=== PATIENT | male | born 1955 | race Two or more races ===

== ENCOUNTER → 2020-01-16 06:00 | Outpatient (CLI) | payer OTHER ==
[~2020-01-16] VITALS: Ht 170.2 cm; Wt 115.7 kg
[~2020-01-16 06:00] MED LIST: ATACAND HCT 321 EACH PO; BAYER THERAPY325 MG PO; METFORMIN HCL500 M3 PO; TENORMIN50 M1 PO; ULTRAM50 MG PO; ZYLOPRIM300 MG PO
== END | disposition home or self-care (01) ==
LOC: LAB 06:00 → RECOVERY 01-21 08:30 → EDSTATUS 01-21 08:30
PROVIDERS: ATTEND Orthopaedic Surgery
DX: Z03.818 Encounter for observation for suspected exposure to other biological agents ruled out (principal); Z20.828 Contact with and (suspected) exposure to other viral communicable diseases

== ENCOUNTER 2020-07-18 10:32 | Outpatient (CLI) | payer OTHER | END 2020-07-18 18:00 | disposition home or self-care (01) | LOC: LAB 10:32 | PROVIDERS: ATTEND Orthopaedic Surgery | DX: I10 Essential (primary) hypertension (principal); Z76.89 Persons encountering health services in other specified circumstances; B95.62 Methicillin resistant Staphylococcus aureus infection as the cause of diseases classified elsewhere; N39.0 Urinary tract infection, site not specified; D68.8 Other specified coagulation defects; E88.89 Other specified metabolic disorders; D64.89 Other specified anemias ==

== ENCOUNTER 2020-08-04 09:47 | Inpatient (IN) | payer OTHER ==
[~2020-08-04] VITALS: Ht 170.2 cm; Wt 120.5 kg
== END 2020-08-07 15:27 | disposition home or self-care (01) | DRG 470 ==
LOC: SURH 09:47 → O/R 10:35 → SURH 10:35
PROVIDERS: ADMIT Orthopaedic Surgery; ATTEND Orthopaedic Surgery
PROC: 0SRB0JZ Replacement of Left Hip Joint with Synthetic Substitute, Open Approach (ICD-10-PCS; principal; 2020-08-04 12:30)
DX: M16.12 Unilateral primary osteoarthritis, left hip (principal); I10 Essential (primary) hypertension; Z20.822 Contact with and (suspected) exposure to COVID-19

== ENCOUNTER 2021-08-19 09:44 | Outpatient (CLI) | payer OTHER ==
[~2021-08-19] VITALS: Ht 170.2 cm; Wt 121.1 kg
== END 2021-08-19 09:46 | disposition home or self-care (01) ==
LOC: LAB 09:44
PROVIDERS: ATTEND Orthopaedic Surgery
DX: M16.11 Unilateral primary osteoarthritis, right hip (principal); Z76.89 Persons encountering health services in other specified circumstances; I10 Essential (primary) hypertension; I49.9 Cardiac arrhythmia, unspecified; D64.9 Anemia, unspecified; E88.9 Metabolic disorder, unspecified; D68.8 Other specified coagulation defects; N39.0 Urinary tract infection, site not specified; A49.02 Methicillin resistant Staphylococcus aureus infection, unspecified site; E11.9 Type 2 diabetes mellitus without complications

== ENCOUNTER 2021-08-28 09:00 | Inpatient (IN) | payer OTHER ==
[2021-08-31] MEDS ORDERED: TYLENOL ARTHRI650 MG PO (08:15)
[2021-08-31] MEDS ORDERED: CELEBREX50 MG PO (08:16)
[2021-09-01] MEDS ORDERED: XARELTO10 M1 (13:02)
[2021-09-01] MEDS ORDERED: GABAPENTIN100 M2 (13:02)
[2021-09-01] MEDS ORDERED: CELECOXIB200 MG (13:02)
[2021-09-01] MEDS ORDERED: DICLOFENAC SOD100 GM (13:04)
[2021-09-01] MEDS ORDERED: VERAPAMIL HCL120 M3 (13:05)
[2021-09-01] MEDS ORDERED: OMEGA-3 ACID ETH1 GM (13:05)
[2021-09-01] MEDS ORDERED: ELIQUIS5 MG (13:05)
[2021-09-01] MEDS ORDERED: DICLOFENAC POTA50 MG (13:05)
[2021-09-01] MEDS ORDERED: MONTELUKAST SOD10 MG (13:06)
[2021-09-01] MEDS ORDERED: FLONASE16 GM (13:06)
== END 2021-09-07 16:23 | DRG 470 ==
LOC: SURH 09:00 → SURG 09-01 10:05 → O/R 09-01 10:05 → SURG 09-02 01:29 → SURH 09-02 10:40
PROVIDERS: ADMIT Orthopaedic Surgery; ATTEND Orthopaedic Surgery
PROC: 0QS404Z Reposition Right Acetabulum with Internal Fixation Device, Open Approach (ICD-10-PCS; 2021-09-01)
PROC: 0KXN0ZZ Transfer Right Hip Muscle, Open Approach (ICD-10-PCS; 2021-09-01)
PROC: 0SR90JZ Replacement of Right Hip Joint with Synthetic Substitute, Open Approach (ICD-10-PCS; principal; 2021-09-01 09:00)
PROC: 0QS404Z Reposition Right Acetabulum with Internal Fixation Device, Open Approach (ICD-10-PCS; 2021-09-02)
PROC: 4A12X4Z Monitoring of Cardiac Electrical Activity, External Approach (ICD-10-PCS; 2021-09-02)
PROC: 30233N1 Transfusion of Nonautologous Red Blood Cells into Peripheral Vein, Percutaneous Approach (ICD-10-PCS; 2021-09-03)
DX: M16.11 Unilateral primary osteoarthritis, right hip (principal); D62 Acute posthemorrhagic anemia; T84.020A Dislocation of internal right hip prosthesis, initial encounter; I24.8 Other forms of acute ischemic heart disease; Q65.89 Other specified congenital deformities of hip; M25.751 Osteophyte, right hip; M89.351 Hypertrophy of bone, right femur; I11.9 Hypertensive heart disease without heart failure; I48.91 Unspecified atrial fibrillation; Z79.52 Long term (current) use of systemic steroids

== ENCOUNTER 2021-09-18 08:36 | Outpatient (CLI) | payer OTHER ==
[~2021-09-18 08:36] MED LIST changes: +CELEBREX50 MG PO; +CELECOXIB200 MG; +DICLOFENAC POTA50 MG; +DICLOFENAC SOD100 GM; +ELIQUIS5 MG; +FLONASE16 GM; +GABAPENTIN100 M2; +MONTELUKAST SOD10 MG; +OMEGA-3 ACID ETH1 GM; +TYLENOL ARTHRI650 MG PO; +VERAPAMIL HCL120 M3; +XARELTO10 M1
== END 2021-09-18 08:52 | disposition home or self-care (01) ==
LOC: LAB 08:36
PROVIDERS: ATTEND Orthopaedic Surgery
DX: D64.9 Anemia, unspecified (principal); M06.4 Inflammatory polyarthropathy

== ENCOUNTER 2021-09-22 09:29 | Outpatient (CLI) | payer OTHER | END 2021-09-22 13:52 | disposition home or self-care (01) | LOC: LAB 09:29 | PROVIDERS: ATTEND Orthopaedic Surgery | DX: M06.4 Inflammatory polyarthropathy (principal) ==

== ENCOUNTER 2021-09-30 08:46 | Outpatient (CLI) | payer OTHER ==
[2021-09-30] MEDS ORDERED: TENORMIN50 M1 (12:50)
[2021-09-30] MEDS ORDERED: NEXIUM5 MG (12:56)
== END 2021-09-30 08:52 | disposition home or self-care (01) ==
LOC: LAB 08:46
PROVIDERS: ATTEND Orthopaedic Surgery
DX: D64.9 Anemia, unspecified (principal); M06.4 Inflammatory polyarthropathy

== ENCOUNTER 2021-09-30 11:58 | Inpatient (IN) | payer OTHER ==
[~2021-09-30] VITALS: Ht 170.2 cm; Wt 121.1 kg
[2021-09-30] MEDS ORDERED: TENORMIN50 M1 (12:50)
[2021-09-30] MEDS ORDERED: NEXIUM5 MG (12:56)
--- NOTE | 2021-09-30 12:57 | NUR ---
SE RECIBE PTE ALERTA Y ORIENTADO. PTE REFIERE DR. LÁZARO VALENCIA LE INDICO ADMISION PARA OPERACION POR MAG DE EMERGENCIA. SE UBICA PTE EN ANGUS 7.
--- NOTE | 2021-09-30 15:18 | NUR ---
SE EDUCA A PTE SOBRE [place] MEDICO NATIVIDAD REFIERE ENTENDER. SE BRAYDON MUESTRAS DE LABORATORIO UTILIZANDO MEDIDAS ASEPTICAS. SE COLOCA H/L EL CUAL S EENCUENTRA PATENTE. SE COLOCA IV FLUIDS A PTE. PTE CONSULTADO CON MEDICINA INTERNA.
== END 2021-10-09 21:07 | disposition home or self-care (01) | DRG 863 ==
LOC: ER 11:58 → SURH 16:30 → MEDI 16:30 → SURH 10-01 17:28
PROVIDERS: Orthopaedic Surgery; ADMIT Internal Medicine; ATTEND Internal Medicine
PROC: 4A12X4Z Monitoring of Cardiac Electrical Activity, External Approach (ICD-10-PCS; 2021-09-30)
PROC: 0HDHXZZ Extraction of Right Upper Leg Skin, External Approach (ICD-10-PCS; principal; 2021-10-02 13:00)
PROC: B54BZZZ Ultrasonography of Right Lower Extremity Veins (ICD-10-PCS; 2021-10-06)
DX: T81.49XA Infection following a procedure, other surgical site, initial encounter (principal); N39.0 Urinary tract infection, site not specified; D64.9 Anemia, unspecified; F43.20 Adjustment disorder, unspecified; I48.91 Unspecified atrial fibrillation; B96.29 Other Escherichia coli [E. coli] as the cause of diseases classified elsewhere; Z20.822 Contact with and (suspected) exposure to COVID-19; I11.0 Hypertensive heart disease with heart failure; I50.9 Heart failure, unspecified

== ENCOUNTER 2022-01-06 14:48 | Outpatient (CLI) | payer OTHER ==
[~2022-01-06 14:48] MED LIST changes: +NEXIUM5 MG; +TENORMIN50 M1
== END 2022-01-06 14:55 | disposition home or self-care (01) ==
LOC: RAD 14:48
PROVIDERS: ATTEND Orthopaedic Surgery
DX: M25.551 Pain in right hip (principal)